=== PATIENT | female | born 1995 ===

== ENCOUNTER 2020-02-13 12:00 | Emergency (ER) | payer OTHER ==
[2020-02-13 12:57] LABS: HEMATOCRIT 49.3 % (36.0-47.0); HEMOGLOBIN 16.2 g/dL (12.0-15.5); MEAN CORPUSCULAR HGB CONC 32.8 g/dL (32.0-36.0); MEAN CORPUSCULAR VOLUME 88 fl (80-97); PLATELET COUNT 313 10^3/uL (150-450); RED BLOOD COUNT 5.58 10^6/uL (3.72-5.28); RED CELL DISTRIBUTION WIDTH 14.9 % (11.5-14.0); WHITE BLOOD COUNT 14.8 10^3/uL (4.0-10.5)
[2020-02-13 13:22] LABS: ALBUMIN 3.9 g/dL (3.5-5.0); ALKALINE PHOSPHATASE 175 U/L (38-126); ANION GAP 16 (5-19); BILIRUBIN,DIRECT 6.1 mg/dL (0.0-0.4); BILIRUBIN,TOTAL 8.1 mg/dL (0.2-1.3); BLOOD UREA NITROGEN 17 mg/dL (7-20); CALCIUM 8.6 mg/dL (8.4-10.2); CARBON DIOXIDE 27 mmol/L (22-30); CHLORIDE 95 mmol/L (98-107); GLUCOSE 88 mg/dL (75-110); POTASSIUM 3.9 mmol/L (3.6-5.0); TOTAL PROTEIN 6.7 g/dL (6.3-8.2)
[2020-02-13 13:24] LABS: ABSOLUTE LYMPHOCYTES# (MANUAL) 0.9 10^3/uL (0.5-4.7); ANISOCYTOSIS SLIGHT; BASOPHILS % (MANUAL) 0 % (0-2); EOSINOPHILS % (MANUAL) 2 % (0-6); LYMPHOCYTES % (MANUAL) 6 % (13-45); MONOCYTES % (MANUAL) 0 % (3-13); PLATELET COMMENT ADEQUATE; SEGMENTED NEUTROPHILS % (MAN) 92 % (42-78); TOTAL CELLS COUNTED 100
[2020-02-13 13:25] LABS: PLATELET LARGE PRESENT; TEAR DROP CELLS SLIGHT
--- NOTE | 2020-02-13 13:26 | ER Document Report ---
ED General - General Chief Complaint: Altered Mental Status Stated Complaint: VOMITING/HEADACHE Time Seen by Provider: 02/13/20 12:17 - HPI Notes: Chief complaint: Altered mental status History of present illness: 24-year-old female not seen here previously dropped off by her boyfriend under unclear circumstances for evaluation of altered mental status. Nursing staff was told patient been binge drinking for several days and "might be doing drugs". Little other substantive information is available regarding this patient. Patient is moaning continuously saying repea tedly "please help me". - Related Data Allergies/Adverse Reactions: No Known Allergies Allergy (Unverified 02/13/20 12:49) Past Medical History - General Information source: Patient, Relative Cannot obtain history due to: Altered mental status - Social History Smoking Status: Current Every Day Smoker Frequency of alcohol use: Social Drug Abuse: Marijuana Family History: Reviewed & Not Pertinent Past Surgical History: Reports: Hx Oral Surgery Review of Systems - Review of Systems -: Yes ROS unobtainable due to patient's medical condition Physical Exam - Vital signs Vitals: Temp Pulse Resp BP Pulse Ox 97.7 F 85 18 126/64 H 99 02/13/20 12:30 02/13/20 12:30 02/13/20 12:30 02/13/20 12:30 02/13/20 12:30 - Notes Notes: GENERAL: Slender female approximately stated age with obvious altered mental status appearing very dehydrated with poor personal hygiene. SKIN:Jaundiced. Diminished skin turgor. Multiple scars of the left forearm and thigh area which appear to be self-inflicted and old. HEAD: Mild bitemporal wasting. EYES: Eyes appear sunken. PERRLA. EOMI. Bialteral scleral icterus. EARS: CANALS AND TMS CLEAR. NOSE: CLEAR. MOUTH: Dry oral mucosa. Good dentition. No stridor or edema. No drooling. NECK: Supple. No masses or thyromegaly. No adenopathy. Carotids 2+ without bruits. No JVD. BACK: Symmetrical without tenderness. CHEST: Respirations unlabored. Breath sounds clear and symmetrical. HEART: Regular rhythm. No murmur gallop or rub. ABDOMEN: Epigastric tenderness. Soft nontender without masses, organomegaly or rebound. Bowel sounds normally active. No bruits. GENITALIA: Normal female. EXTREMITIES: No edema. No calf tenderness. Cap refill less than 1.5 seconds. Dorsalis pedis and posterior tibial pulses 3+ and symmetrical. NEUROLOGICAL: Altered mental status. Eyes open spontaneously. Patient will not answer questions but repeatedly says "help me". Patient localizes pain but will not follow commands. GCS 12. Moving extremities symmetrically. Normal tone. Course - Re-evaluation Re-evalutation: 02/13/20 16:[address] Izabella Gamble the on-call critical care admissions dean at [facility]. They currently do not have a bed available. She is going to try to make other arrangements to be able to accept this patient and will call me back within the hour. In the meantime I spoken with the transfer center at [facility] and they are currently on divert and do not have a bed available for this patient. I spoke with [facility] and they do not have liver transplantation capability and therefore would not be able to accept this patient. 02/13/20 19:13 I spoke with the oncoming ICU attending at [facility] and he has requested that we give a 1 time dose of fomepizole 15 mg/kg to infuse over 30 to 60 minute s. This has been ordered through the pharmacy. We also agreed that we going to give the patient 2 units of FFP and this is been ordered. Labs and imaging have been reviewed. We agree that we can get some repeat labs at this point and we will draw a blood culture and a fibrinogen level. If the fibrinogen is elevated they would recommend administering cryoprecipitate. Despite findings on gallb ladder ultrasound [facility] does not recommend administration of antibiotics but does want us to pull blood cultureS. Patient's mentation remains unchanged with GCS of 12. Vital signs at this time include a blood pressure of 118/67, pulse 94 and respirations 19/min 100% O2 saturation on room air. Bed is been assigned at [facility] and we anticipate transport around 2000 hours. EMT ALA form completed. 02/13/20 19:21 - Vital Signs Vital signs: Temp Pulse Resp BP Pulse Ox 97.7 F 85 23 H 119/58 L 100 02/13/20 12:30 02/13/20 12:30 02/13/20 14:18 02/13/20 14:18 02/13/20 14:18 - Laboratory Result Diagrams: 02/13/20 12:38 02/13/20 12:38 Laboratory results interpreted by me: 02/13/20 02/13/20 02/13/20 12:38 12:38 12:38 WBC 14.8 H RBC 5.58 H Hgb 16.2 H Hct 49.3 H RDW 14.9 H Seg Neuts % (Manual) 92 H Lymphocytes % (Manual) 6 L Monocytes % (Manual) 0 L Abs Neuts (Manual) 13.6 H Abs Monocytes (Manual) 0.0 L PT INR APTT VBG pCO2 VBG HCO3 Chloride 95 L Lactic Acid Magnesium Total Bilirubin 8.1 H Direct Bilirubin 6.1 H AST 43316 H ALT 87224 H Alkaline Phosphatase 175 H Ammonia Lipase Urine Protein Urine Ketones Urine Urobilinogen Urine Ascorbic Acid Acetaminophen 44 H 02/13/20 02/13/20 02/13/20 12:38 12:38 14:47 WBC RBC Hgb Hct RDW Seg Neuts % (Manual) Lymphocytes % (Manual) Monocytes % (Manual) Abs Neuts (Manual) Abs Monocytes (Manual) PT INR APTT VBG pCO2 VBG HCO3 Chloride Lactic Acid Magnesium 2.9 H Total Bilirubin Direct Bilirubin AST ALT Alkaline Phosphatase Ammonia 113.6 H Lipase 724.4 H Urine Protein Urine Ketones Urine Urobilinogen Urine Ascorbic Acid Acetaminophen 02/13/20 02/13/20 02/13/20 14:47 14:47 16:05 WBC RBC Hgb Hct RDW Seg Neuts % (Manual) Lymphocytes % (Manual) Monocytes % (Manual) Abs Neuts (Manual) Abs Monocytes (Manual) PT 78.2 H* INR 10.09 H* APTT 46.5 H VBG pCO2 33.0 L VBG HCO3 18.8 L Chloride Lactic Acid 8.6 H Magnesium Total Bilirubin Direct Bilirubin AST ALT Alkaline Phosphatase Ammonia Lipase Urine Protein Urine Ketones Urine Urobilinogen Urine Ascorbic Acid Acetaminophen 02/13/20 02/13/20 16:15 17:06 WBC RBC Hgb Hct RDW Seg Neuts % (Manual) Lymphocytes % (Manual) Monocytes % (Manual) Abs Neuts (Manual) Abs Monocytes (Manual) PT INR APTT VBG pCO2 VBG HCO3 Chloride Lactic Acid Magnesium Total Bilirubin Direct Bilirubin AST ALT Alkaline Phosphatase Ammonia Lipase Urine Protein 100 H Urine Ketones 20 H Urine Urobilinogen 2.0 H Urine Ascorbic Acid 20 H Acetaminophen 38 H - EKG Interpretation by Me Additional EKG results interpreted by me: 02/13/20 13:26 Twelve-lead EKG reviewed by me contemporaneously: 1249 Indication for study: AMS Rhythm: Normal sinus Rate: 84 Intervals: QT prolongation with QTC of 530 ms QRS axis: Normal +[address]/T wave changes: Nonspecific T wave changes Comparison with prior tracing: Not available Interpretation: Normal sinus rhythm with QT prolongation and nonspecific T wave changes Critical Care Note - Critical Care Note Total time excluding time spent on procedures (mins): 180 - Patient has become very altered and agitated. We have administered Haldol and Ativan parenterally in her process of carrying out a work-up for altered mental status. Patient's serum ammonia level is 113. Her transaminases are massively elevated as is her bilirubin alkaline phosphatase and her acetaminophen level is 44. 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 We have spoken to poison control initiated IV Mucomyst infusion protocol. Discharge - Discharge Clinical Impression: Hepatic necrosis, Hepatic encephalopathy, Coagulopathy Acetaminophen toxicity Qualifiers: Encounter type: initial encounter Injury intent: undetermined intent Qualified Code(s): T39.1X4A - Poisoning by 4-Aminophenol derivatives, undetermined, initial encounter Condition: Critical Disposition: [place]
[2020-02-13] MEDS: NORMAL SALINE 1000 ML 1,000 ML IV PRN ×2 (13:27→14:21)
[2020-02-13 13:49] LABS: SALICYLATE 4.9 mg/dL (2.0-20.0)
[2020-02-13] MEDS ORDERED: ONDANSETRON HCL INJ/PF 4 MG/2 ML SDV IV ONE (13:49)
[2020-02-13 13:59] LABS: ALCOHOL < 10 mg/dL (NONE DETECTED)
--- NOTE | 2020-02-13 14:03 | RADIOLOGY REPORT (SQ) ---
EXAM DESCRIPTION: CHEST SINGLE VIEW IMAGES COMPLETED DATE/TIME: 02/13/2020 1:39 pm REASON FOR STUDY: ams COMPARISON: None. EXAM PARAMETERS: NUMBER OF VIEWS: One view. TECHNIQUE: Single frontal radiographic view of the chest acquired. RADIATION DOSE: NA LIMITATIONS: None. FINDINGS: LUNGS AND PLEURA: No opacities, masses or pneumothorax. No pleural effusion. MEDIASTINUM AND HILAR STRUCTURES: No masses. Contour normal. HEART AND VASCULAR STRUCTURES: Heart normal in size. Normal vasculature. BONES: No acute findings. HARDWARE: None in the chest. OTHER: No other significant finding. IMPRESSION: NO ACUTE RADIOGRAPHIC FINDING IN THE CHEST. TECHNICAL DOCUMENTATION: JOB ID: [id number] 2010 [employer]- All Rights Reserved Reading location - IP/workstation name: [email or web address]
[2020-02-13] MEDS ORDERED: LORAZEPAM INJ 2 MG/1 ML VIAL IV ONE ×2 (14:07→17:06)
[2020-02-13] MEDS ORDERED: HALOPERIDOL LACTATE INJ 5 MG/1 ML VIAL IM ONE (14:07)
[2020-02-13 14:33] LABS: ASPARTATE AMINO TRANSFERASE 10582 U/L (14-36)
[2020-02-13 15:02] LABS: VENOUS BLOOD BASE EXCESS -5.4 mmol/L; VENOUS BLOOD HCO3 18.8 mmol/L (20-32); VENOUS BLOOD PH 7.37 (7.30-7.42)
[2020-02-13] MEDS ORDERED: ACETYLCYSTEINE INJ 6000 MG/30 ML IV ONE ×3 (15:12→20:13)
--- NOTE | 2020-02-13 15:13 | EKG REPORT ---
SEVERITY:- ABNORMAL ECG - SINUS RHYTHM BORDERLINE T ABNORMALITIES, DIFFUSE LEADS PROLONGED QT INTERVAL : Confirmed by: Lucas Riley MD 13-Feb-2020 15:12:09
[2020-02-13] MEDS ORDERED: LACTULOSE SYRUP 20 GM/30 ML UDCUP PR ONE (16:01)
--- NOTE | 2020-02-13 16:06 | RADIOLOGY REPORT (SQ) ---
EXAM DESCRIPTION: CT HEAD WITHOUT IMAGES COMPLETED DATE/TIME: 02/13/2020 3:41 pm REASON FOR STUDY: ams COMPARISON: None. TECHNIQUE: Axial images acquired through the brain without intravenous contrast. Images reviewed wi th bone, brain and subdural windows. Additional sagittal and coronal reconstructions were generated. Images stored on PACS. All CT scanners at this facility use dose modulation, iterative reconstruction, and/or weight based d osing when appropriate to reduce radiation dose to as low as reasonably achievable (ALARA). [facility]: Dose Right [facility]: CareDose [facility]: Dose Right [facility]: Teradose 4D [facility]: [employer]ystems RADIATION DOSE: CT Rad equipment meets quality standard of care and radiation dose reduction techniq ues were employed. CTDIvol: 53.2 mGy. DLP: 1177 mGy-cm. mGy. LIMITATIONS: Motion artifact. FINDINGS: VENTRICLES: Normal size and contour. CEREBRUM: No masses. No hemorrhage. No midline shift. No evidence for acute infarction. Normal gra y/white matter differentiation. No areas of low density in the white matter. CEREBELLUM: No masses. No hemorrhage. No alteration of density. No evidence for acute infarction. EXTRAAXIAL SPACES: No fluid collections. No masses. ORBITS AND GLOBE: No intra- or extraconal masses. Normal contour of globe without masses. CALVARIUM: No fracture. PARANASAL SINUSES: No fluid or mucosal thickening. SOFT TISSUES: No mass or hematoma. OTHER: No other significant finding. IMPRESSION: NORMAL BRAIN CT WITHOUT CONTRAST. EVIDENCE OF ACUTE STROKE: NO. COMMENT: Quality ID # [id number]: Final reports with documentation of one or more dose reduction techniques (e.g., Automated exposure control, adjustment of the mA and/or kV according to patient size, use of iterative reconstruction technique) TECHNICAL DOCUMENTATION: JOB ID: [id number] 2010 [employer]- All Rights Reserved Reading location - IP/workstation name: [email or web address]
--- NOTE | 2020-02-13 16:09 | RADIOLOGY REPORT (SQ) ---
EXAM DESCRIPTION: CT ABD/PELVIS WITH IV ONLY IMAGES COMPLETED DATE/TIME: 02/13/2020 3:41 pm REASON FOR STUDY: epigastric pain COMPARISON: None. TECHNIQUE: CT scan of the abdomen and pelvis performed using helical scanning technique with dynamic intravenous contrast injection. No oral contrast. Images reviewed with lung, soft tissue, and bone windows. Reconstructed coronal and sagittal MPR images reviewed. Delayed images for evaluation of the urinary system also acquired. All images stored on PACS. All CT scanners at this facility use dose modulation, iterative reconstruction, and/or weight based d osing when appropriate to reduce radiation dose to as low as reasonably achievable (ALARA). [facility]: Dose Right [facility]: CareDose [facility]: Dose Right [facility]: Teradose 4D [facility]: [employer] CONTRAST TYPE AND DOSE: contrast/concentration: Isovue 350.00 mmol/ml; Total Contrast Delivered: 75. 9 ml; Total Saline Delivered: 64.0 ml RENAL FUNCTION: GFR > 60. RADIATION DOSE: CT Rad equipment meets quality standard of care and radiation dose reduction techniq ues were employed. CTDIvol: 9.6 - 14.4 mGy. DLP: 1865 mGy-cm.. LIMITATIONS: Positioning. FINDINGS: LOWER CHEST: No significant findings. No nodules or infiltrates. LIVER: Normal size. Steatosis. No masses. No dilated ducts. SPLEEN: Normal size. No focal lesions. PANCREAS: No masses. No significant calcifications. No adjacent inflammation or peripancreatic fluid collections. Pancreatic duct not dilated. GALLBLADDER: No identified stones by CT criteria. No inflammatory changes to suggest cholecystitis. ADRENAL GLANDS: No significant masses or asymmetry. RIGHT KIDNEY AND URETER: No solid masses. No significant calcifications. No hydronephrosis or hyd roureter. LEFT KIDNEY AND URETER: No solid masses. No significant calcifications. No hydronephrosis or hydr oureter. AORTA AND VESSELS: No aneurysm. No dissection. Renal arteries, SMA, celiac without stenosis. RETROPERITONEUM: No retroperitoneal adenopathy, hemorrhage or masses. BOWEL AND PERITONEAL CAVITY: No masses or inflammatory changes. No free fluid or peritoneal masses. APPENDIX: Not visualized. PELVIS: No mass. No free fluid. Normal bladder. ABDOMINAL WALL: No masses. No hernias. BONES: No significant or acute findings. OTHER: No other significant finding. IMPRESSION: No acute findings. TECHNICAL DOCUMENTATION: JOB ID: [id number] Quality ID # [id number]: Final reports with documentation of one or more dose reduction techniques (e.g., Au tomated exposure control, adjustment of the mA and/or kV according to patient size, use of iterative reconstruction technique) 2010 [employer]- All Rights Reserved Reading location - IP/workstation name: [email or web address]
[2020-02-13 16:21] LABS: PARTIAL THROMBOPLASTIN TIME 46.5 SEC (23.5-35.8)
--- NOTE | 2020-02-13 16:21 | RADIOLOGY REPORT (SQ) ---
EXAM DESCRIPTION: U/S ABDOMEN LIMITED W/O DOP IMAGES COMPLETED DATE/TIME: 02/13/2020 4:06 pm REASON FOR STUDY: abd pain and jaundice COMPARISON: None. TECHNIQUE: Dynamic and static grayscale images acquired of the abdomen and recorded on PACS. Additio nal selected color Doppler and spectral images recorded. LIMITATIONS: None. FINDINGS: PANCREAS: No masses. Visualized pancreatic duct normal caliber. LIVER: Normal size Echo texture normal. No focal masses. LIVER VASCULATURE: Normal directional flow of the main portal vein and hepatic veins. GALLBLADDER: Thickened gallbladder wall up 13 mm. Small amount of pericholecystic fluid. No stones visualized. ULTRASOUND-DETECTED SOL'S SIGN: Negative. INTRAHEPATIC DUCTS AND COMMON DUCT: CBD and intrahepatic ducts normal caliber. No filling defects. INFERIOR VENA CAVA: Normal flow. AORTA: No aneurysm. RIGHT KIDNEY: Normal size. Normal echogenicity. No solid or suspicious masses. No hydronephros is. No calcifications. PERITONEAL AND RIGHT PLEURAL SPACE: No ascites or effusions. OTHER: No other significant findings. IMPRESSION: Acalculous cholecystitis. TECHNICAL DOCUMENTATION: JOB ID: [id number] 2010 [employer]- All Rights Reserved Reading location - IP/workstation name: [email or web address]
[2020-02-13 16:31] LABS: PROTHROMBIN TIME 78.2 SEC (11.4-15.4)
[2020-02-13 16:32] LABS: INTERNATIONAL RATION (INR) 10.09
[2020-02-13 18:02] LABS: APPEARANCE,URINE CLEAR; BILIRUBIN,URINE NEGATIVE (NEGATIVE); COLOR,URINE AMBER; GLUCOSE, URINE NEGATIVE (NEGATIVE); KETONES,URINE 20 mg/dL (NEGATIVE); LEUKOCYTE ESTERASE,URINE NEGATIVE (NEGATIVE); NITRITE,URINE NEGATIVE (NEGATIVE); PROTEIN,URINE 100 mg/dL (NEGATIVE); URINE SPECIFIC GRAVITY 1.042
[2020-02-13] MEDS ORDERED: NORMAL SALINE 1000 ML 1,000 ML IV PRN (18:19)
[2020-02-13 18:22] LABS: URINE AMPHETAMINES SCREEN NEGATIVE; URINE BARBITURATES SCREEN NEGATIVE; URINE BENZODIAZEPINES SCREEN NEGATIVE; URINE COCAINE SCREEN NEGATIVE; URINE METHADONE SCREEN NEGATIVE; URINE PHENCYCLIDINE SCREEN NEGATIVE
[2020-02-13 18:23] LABS: URINE MARIJUANA (THC) SCREEN UNCONFIRMED POSITIVE
[2020-02-13] MEDS ORDERED: NORMAL SALINE 250 ML IV PRN ×2 (18:41)
[2020-02-13] MEDS ORDERED: FOMEPIZOLE IV ONE (19:45)
[2020-02-13] MEDS ORDERED: NORMAL SALINE IV ONE (19:45)
[2020-02-13 19:56] LABS: ALBUMIN 2.7 g/dL (3.5-5.0); ALKALINE PHOSPHATASE 92 U/L (38-126); ANION GAP 9 (5-19); BILIRUBIN,DIRECT 4.5 mg/dL (0.0-0.4); BILIRUBIN,TOTAL 6.1 mg/dL (0.2-1.3); BLOOD UREA NITROGEN 14 mg/dL (7-20); CALCIUM 7.2 mg/dL (8.4-10.2); CARBON DIOXIDE 28 mmol/L (22-30); CHLORIDE 103 mmol/L (98-107); GLUCOSE 122 mg/dL (75-110); POTASSIUM 3.2 mmol/L (3.6-5.0); TOTAL PROTEIN 4.9 g/dL (6.3-8.2)
[2020-02-13 20:21] LABS: ASPARTATE AMINO TRANSFERASE 6715 U/L (14-36)
[2020-02-13 21:07] VITALS: BP 115/63
== END 2020-02-13 21:00 | disposition short-term general hospital (02) ==
LOC: ER 12:00
DX: K72.90 Hepatic failure, unspecified without coma (principal); D68.9 Coagulation defect, unspecified; T39.1X4A Poisoning by 4-Aminophenol derivatives, undetermined, initial encounter; R41.82 Altered mental status, unspecified; R11.10 Vomiting, unspecified; R51 Headache; X58.XXXA Exposure to other specified factors, initial encounter; F17.200 Nicotine dependence, unspecified, uncomplicated
CPT/HCPCS: 96376; 99291; 99292; 96361; 96374; 96375; 86900; 86901; 36415; 87040; 80307 ×4; 82140; 82550; 83605; 83690; 83735; 84703; 85025; 85384; 85610; 85730; 87070; 80053; 81001; 82803; 71045; 76705; 70450; 74177; 93005; 93010; J1630; J1451; J2060; J2405; J0132; J7050; J7030